=== PATIENT | female | born 1985 | race American Indian/Alaskan Native ===

== ENCOUNTER 2018-04-05 15:08 | Outpatient (CLI) | payer MEDICARE ==
--- NOTE | 2018-04-05 16:28 | XRay Report ---
CHEST TWO VIEWS: 04/05/18 15:08:00 CLINICAL: Possible recent pneumothorax. COMPARISON: None FINDINGS: 2 vertical lines run roughly parallel to the right lower lateral ribs. I suspect that these are skin folds rather than pleural lines with a pneumothorax. Lung markings extend through the more medial line.No apical pneumothorax is identified. The right lung is well expanded and clear. The left lung is normally expanded and clear. A right [id number] tip is in the distal SVC. Normal heart and pulmonary vessels.The bones and soft tissues are normal. IMPRESSION: A tiny loculated right inferior pneumothorax cannot be entirely excluded but I favor skinfolds mimicking a right basal pneumothorax. No pleural effusion no pneumonia.
== END 2018-04-05 15:09 | disposition home or self-care (01) ==
LOC: SPVIMAG 15:08
PROVIDERS: ATTEND Internal Medicine Hematology
DX: D50.0 Iron deficiency anemia secondary to blood loss (chronic) (principal)
CPT/HCPCS: 71046